=== PATIENT | female | born 1970 | race Hispanic/Latino ===

== ENCOUNTER → 2023-05-01 10:36 | Outpatient (CLI) | payer OTHER, MEDICAID, SELFPAY ==
--- NOTE | 2023-05-01 10:38 | DI.RAD.S_ITS ---
PROCEDURE: XR CERVICAL SPINE 2V OR 3V INDICATIONS: neck pain, numbness tingling in right arm TECHNIQUE: 3 view(s) of the cervical spine were acquired. COMPARISON: None. FINDINGS: Bones: No fractures or dislocations to the C7 level. The lateral masses of C1 appear intact on the odontoid view. No suspicious bony lesions. Straightening of the normal cervical lordosis, a finding which can be seen in the setting of muscle strain and/or spasm. Mild multilevel degenerative changes with disc height loss, endplate spurring, and facet arthropathy. Soft tissues: No prevertebral soft tissue swelling. IMPRESSION: Degenerative changes of the cervical spine. Dictated by: Jude Lawton M.D. on 05/01/2023 at 20:21 Approved by: Jude Lawton M.D. on 05/01/2023 at 20:22
[2023-05-01 12:33] LABS: Hematocrit 44.1 % (36-46); Hemoglobin 15.3 g/dL (12.0-16.0); Mean Corpuscular HGB Conc 34.7 % (30-36); Mean Corpuscular Hemoglobin 28.9 PG (26-34); Mean Corpuscular Volume 83.2 fL (80-100); Platelet Count 210 X10^3/uL (150-400); Red Blood Cell Count 5.31 X10^6/uL (4.0-5.2); Red Cell Distribution Width 12.7 % (11.6-14.8); White Blood Cell Count 4.1 X10^3/uL (4.5-11.0)
[2023-05-01 12:40] LABS: Add Manual Diff / Slide Review YES
[2023-05-01 13:07] LABS: Alanine Aminotransferase 25 IU/L (<35); Albumin 4.5 g/dL (3.5-5.0); Albumin Globulin Ratio 1.3 (1.0-2.8); Alkaline Phosphatase 107 U/L (38-126); Aspartate Aminotransferase 28 IU/L (14-36); BUN Creatinine Ratio 23.6 (6-22); Bilirubin Total 0.8 mg/dL (0.2-1.3); Blood Urea Nitrogen 17 mg/dL (7-17); Calcium 9.8 mg/dL (8.4-10.2); Carbon Dioxide 31 mmol/L (22-32); Chloride 100 mmol/L (98-107); Cholesterol 207 mg/dL (140-199); Estimated Glomerular Filt Rate > 60 mL/min (>60); Globulin 3.5 g/dL (1.7-4.1); Glucose 91 mg/dL (70-100); HDL Cholesterol 48 mg/dL (40-60); HEMOLYSIS < 15 (0-50); LDL Cholesterol Calculated 121 mg/dL (<100); Potassium 3.5 mmol/L (3.4-5.1); Sodium 140 mmol/L (137-145); Triglycerides 190 mg/dL (35-150)
[2023-05-01 13:16] LABS: Neutrophils Absolute Manual 1435 /uL (3000-5900); Total Cells Counted 100
[2023-05-01 13:17] LABS: RBC Morphology Normal Morphology
[2023-05-01 13:36] LABS: TSH w/ Reflex to FT4 2.07 uIU/mL (0.47-4.68)
== END ==
PROVIDERS: PCP Student in an Organized Health Care Education/Training Program; Referring Provider Student in an Organized Health Care Education/Training Program; Visit Provider Student in an Organized Health Care Education/Training Program
DX: Z00.00 Encounter for general adult medical examination without abnormal findings (principal); M54.2 Cervicalgia; R53.83 Other fatigue
CPT/HCPCS: 36415; 72040; 80053; 80061; 84443; 85007; 85025

== ENCOUNTER → 2023-07-29 09:00 | Outpatient (CLI) | payer OTHER, MEDICAID, SELFPAY ==
[2023-07-29 11:22] LABS: Alanine Aminotransferase 31 IU/L (<35); Albumin 4.2 g/dL (3.5-5.0); Albumin Globulin Ratio 1.2 (1.0-2.8); Alkaline Phosphatase 82 U/L (38-126); Aspartate Aminotransferase 27 IU/L (14-36); BUN Creatinine Ratio 23.5 (6-22); Bilirubin Total 0.7 mg/dL (0.2-1.3); Blood Urea Nitrogen 16 mg/dL (7-17); Calcium 9.4 mg/dL (8.4-10.2); Carbon Dioxide 31 mmol/L (22-32); Chloride 100 mmol/L (98-107); Estimated Glomerular Filt Rate > 60 mL/min (>60); Globulin 3.5 g/dL (1.7-4.1); Glucose 97 mg/dL (70-100); HEMOLYSIS < 15 (0-50); Potassium 3.3 mmol/L (3.4-5.1); Sodium 140 mmol/L (137-145); Total Protein 7.7 g/dL (6.3-8.2); Uric Acid 8.9 mg/dL (2.5-6.2)
[2023-07-30 12:01] LABS: Fecal Immunochemical Test Negative (Negative)
== END ==
PROVIDERS: PCP Student in an Organized Health Care Education/Training Program; Referring Provider Student in an Organized Health Care Education/Training Program; Visit Provider Student in an Organized Health Care Education/Training Program
DX: Z12.11 Encounter for screening for malignant neoplasm of colon (principal); I10 Essential (primary) hypertension; M10.9 Gout, unspecified
CPT/HCPCS: 36415; 80053; 82274; 84550

== ENCOUNTER → 2024-03-06 10:11 | Outpatient (CLI) | payer OTHER, MEDICAID, SELFPAY | PROVIDERS: PCP Student in an Organized Health Care Education/Training Program; Referring Provider Student in an Organized Health Care Education/Training Program; Visit Provider Student in an Organized Health Care Education/Training Program | DX: R05.3 Chronic cough (principal); R94.2 Abnormal results of pulmonary function studies | CPT/HCPCS: 94060; 94726; 94729 ==

== ENCOUNTER 2024-07-03 15:39 | Emergency (ER) | payer OTHER, SELFPAY ==
[2024-07-03 15:50] VITALS: BP 136/86; PULSE 98; RESP 16; TEMP 36.6; O2SAT 96; BMI 29.2
--- NOTE | 2024-07-03 18:05 | ED.EAR ---
HPI - Ear Problem <Todd Teixeira PA-C - Last Filed: 07/06/24 10:52> General Chief complaint: Ear Stated complaint: ear px, hearing loss, fever Time Seen by Provider: 07/03/24 17:09 Source: patient Mode of arrival: Family Vehicle History of Present Illness HPI Narrative: This is a 54 y/o female presenting to the emergency department complaining of bilat ear pain for the last two weeks. Denies any fevers, N/V/D, or any other concerning signs or symptoms. Reports some discharge from the R ear. Related Data Previous Rx's Medication Instructions Recorded allopurinol 100 mg tablet 100 mg PO DAILY #90 tabs 08/02/23 amlodipine 5 mg tablet 5 mg PO DAILY #90 tabs 08/02/23 famotidine 20 mg tablet (Pepcid) 20 mg PO DAILY #90 tabs 08/02/23 losartan 100 1 tab PO DAILY #90 tabs 08/02/23 mg-hydrochlorothiazide 25 mg tablet omeprazole 20 mg capsule,delayed 20 mg PO DAILY #30 caps 12/26/23 release beclomethasone dipropionate 40 2 inh inhalation BID #10.6 grams 01/02/24 mcg/actuation HFA breath activated aerosol (Qvar RediHaler) amoxicillin 875 mg-potassium 1 tab PO BID #14 tabs 07/03/24 clavulanate 125 mg tablet Allergies Allergy/AdvReac Type Severity Reaction Status Date / Time No Known Drug Allergies Allergy Verified 12/26/23 13:30 Review of Systems <Todd Teixeira PA-C - Last Filed: 07/06/24 10:52> Review of Systems Narrative: GENERAL: Denies chills, fatigue, malaise, fever, sweats. HEENT: Reports ear pain Denies sinus pain, , sore throat, difficulty swallowing, dizziness. RESPIRATORY: Denies dyspnea, cough, wheezing, hemoptysis, sputum. CARDIOVASCULAR: Denies chest pain, palpitations, orthopnea, edema, GASTROINTESTINAL: Denies nausea, vomiting, abdominal pain, diarrhea, constipation, melena. : Denies dysuria, frequency, incontinence, hematuria, urinary retention. MUSCULOSKELETAL: denies weakness, joint pain, or bony pain SKIN: Denies rash, skin lesions, or other NEUROLOGIC: Denies weakness, headache, numbness, change in speech, confusion, seizures, incoordination. PSYCHIATRIC: No concerning psychosocial issues. 12 point review of systems is negative except for those stated above Patient History <STEVE Abel Last Filed: 07/06/24 10:52> Medical History (Updated 07/18/24 @ 00:00 by ) Chronic bronchitis (~2021) Chronic cough (~2020) Shoulder pain (~2021) Foot pain (~2019) Hearing loss (~1984) Kidney stones (~2020) Gout (~2019) Hypertension (~2017) Surgical History (Updated 05/17/23 @ 21:10 by Robyn Sutton) Anesthesia History of gallstones (~08/2011) Social History Smoking Status: Never smoker Smoking Status: Never smoker Exam <STEVE Abel Last Filed: 07/06/24 10:52> Narrative Exam Narrative: GENERAL: Well-developed patient, in mild distress. HEAD: Atraumatic. Normocephalic. EYES: Pupils equal round and reactive. Extraocular motions intact. No scleral icterus. No injection or drainage. ENT: Nose without bleeding, purulent drainage. Throat without erythema, tonsillar hypertrophy or exudate. Airway patent. Bilat TM erythemas, R EAC w/ some purulent drainage as well NECK: Trachea midline. Non tender EXTREMITIES: No edema or joint tenderness. NEURO: AOx3. SKIN: No rash or erythema of visible areas Initial Vital Signs Initial Vital Signs: Vital Signs Temperature 97.8 F 07/03/24 15:50 Pulse Rate 98 H 07/03/24 15:50 Respiratory Rate 16 07/03/24 15:50 Blood Pressure 136/86 07/03/24 15:50 Pulse Oximetry 96 07/03/24 15:50 Oxygen Delivery Method Room Air 07/03/24 15:50 <Janki Aguayo DO - Last Filed: 07/19/24 23:50> Initial Vital Signs Initial Vital Signs: Vital Signs Temperature 97.8 F 07/03/24 15:50 Pulse Rate 98 H 07/03/24 15:50 Respiratory Rate 16 07/03/24 15:50 Blood Pressure 136/86 07/03/24 15:50 Pulse Oximetry 96 07/03/24 15:50 Oxygen Delivery Method Room Air 07/03/24 15:50 Course <STEVE Abel Last Filed: 07/06/24 10:52> Vital Signs Vital signs: Vital Signs - 8 hr 07/03/24 15:50 Temperature 97.8 F Pulse Rate 98 H Respiratory Rate 16 Blood Pressure 136/86 Pulse Oximetry 96 Oxygen Delivery Method Room Air <Janki Xavier Aguayo DO - Last Filed: 07/19/24 23:50> Vital Signs Vital signs: Vital Signs - 8 hr 07/03/24 15:50 Temperature 97.8 F Pulse Rate 98 H Respiratory Rate 16 Blood Pressure 136/86 Pulse Oximetry 96 Oxygen Delivery Method Room Air Medical Decision Making <Todd Teixeira PA-C - Last Filed: 07/06/24 10:52> MDM Narrative Medical decision making narrative: ED course: 54 y/o F presenting to clinic w/ concerns for OE and AOM on physical exam. No evidence of mastoiditis. Will treat w/ oral and topical abx CC: Ear pain Complicating co-morbidities: None Data collected from: Previous notes Medical records reviewed: Not been here for similar symptoms in the past Differential considered, but not limited to: AOM, AOE, mastoiditis, perforated TM Exam documented above, pertinent findings include: Erythema to TM as well as purulent drainage Lab Test results independently reviewed as above. Pertinent findings: None obtained Imaging studies independently reviewed: None obtained Scores Used: None MIPS Elements: None Consultations: None Treatments: None Re-evaluations: None Discussion: Discussed plan with the patient was comfortable with the plan Diagnosis: Otitis media and otitis externa Disposition: see below, along with detailed discharge instructions that have been reviewed with patient as well as indications for ED re-evaluation and additional outpatient follow up Discharge Plan Departure Patient Disposition: Home Clinical Impression: Ear infection Instructions: DI for Middle Ear Infection-Adult Activity Restrictions/Additional Instructions: Thank you for coming to the [facility] Emergency Department today. please use the antibiotics as prescribed. Please return to the emergency department if you develop any Fevers, severe pain, or any other concerning signs or symptoms. I hope you feel better soon. Please follow up with your primary care provider within a week if your symptoms continue. If you do not have a primary care provider please contact the [facility] Resource line at [phone]. They will ask some questions about your medical history and help you get set up with a provider in the community. Prescriptions: New amoxicillin-pot clavulanate 875-125 mg tablet 1 tab PO BID Qty: 14 0RF No Action allopurinol 100 mg tablet 100 mg PO DAILY Qty: 90 3RF amlodipine 5 mg tablet 5 mg PO DAILY Qty: 90 3RF famotidine [Pepcid] 20 mg tablet 20 mg PO DAILY Qty: 90 3RF losartan-hydrochlorothiazide 100-25 mg tablet 1 tab PO DAILY Qty: 90 3RF omeprazole 20 mg capsule,delayed release(DR/EC) 20 mg PO DAILY Qty: 30 3RF Qvar RediHaler 40 mcg/actuation HFA aerosol breath activated 2 inh inhalation BID Qty: 10.6 0RF Referrals: Choco Kumar MD [Physician] - Kristen Matthew MD [Primary Care Provider] - Stand Alone Forms: Patient Portal/API/Survey ED Sign-out <Janki Aguayo DO - Last Filed: 07/19/24 23:50> Cosign ED Attending Cosnoelature Attestation: I was immediately available in the department for consultation.
[2024-07-03 18:22] VITALS: BP 130/82; PULSE 94; RESP 16; O2SAT 98
== END 2024-07-03 18:23 | disposition home or self-care (01) ==
PROVIDERS: Emergency Provider Physician Assistant Medical; PCP Student in an Organized Health Care Education/Training Program
DX: H66.93 Otitis media, unspecified, bilateral (principal); H60.93 Unspecified otitis externa, bilateral
CPT/HCPCS: 99281

== ENCOUNTER → 2024-09-07 09:25 | Outpatient (CLI) | payer OTHER, SELFPAY ==
[2024-09-07 10:01] LABS: Add Manual Diff / Slide Review NO; Basophils Absolute Auto 0 /uL (0-100); Basophils Percent Auto 1.1 % (0-2); Eosinophils Absolute Auto 100 /uL (0-450); Eosinophils Percent Auto 3.4 % (2-4); Hematocrit 40.6 % (36-46); Hemoglobin 14.3 g/dL (12.0-16.0); Lymphocytes Absolute Auto 2200 /uL (1100-4500); Lymphocytes Percent Auto 51.5 % (25-40); Mean Corpuscular HGB Conc 35.2 % (30-36); Mean Corpuscular Hemoglobin 30.2 PG (26-34); Mean Corpuscular Volume 85.6 fL (80-100); Monocytes Absolute Auto 300 /uL (0-900); Monocytes Percent Auto 6.6 % (3-14); Neutrophils Absolute Auto 1600 /uL (1500-7000); Neutrophils Percent Auto 37.4 % (50-75); Platelet Count 209 X10^3/uL (150-400); Red Blood Cell Count 4.74 X10^6/uL (4.0-5.2); White Blood Cell Count 4.3 X10^3/uL (4.5-11.0)
[2024-09-07 10:28] LABS: Creatinine Urine Random 32.25 mg/dL
[2024-09-07 10:33] LABS: Microalbumin Urine Random < 0.6 mg/dL (0-1.6)
[2024-09-07 10:43] LABS: BUN Creatinine Ratio 25.7 (6-22); Blood Urea Nitrogen 18 mg/dL (7-17); Cholesterol 221 mg/dL (140-199); Estimated Glomerular Filt Rate > 60 mL/min (>60); HDL Cholesterol 55 mg/dL (40-60); LDL Cholesterol Calculated 142 mg/dL (<100); Triglycerides 122 mg/dL (35-150)
== END ==
PROVIDERS: PCP Student in an Organized Health Care Education/Training Program; Referring Provider Student in an Organized Health Care Education/Training Program; Visit Provider Student in an Organized Health Care Education/Training Program
DX: I10 Essential (primary) hypertension (principal)
CPT/HCPCS: 36415; 80061; 82043; 82565; 82570; 84520; 85025

== ENCOUNTER 2024-10-05 09:12 | Day surgery (SDC) | payer OTHER, SELFPAY ==
[2024-10-05] MEDS: LACTATED RINGERS 1,000 ML 150 ML IV (10:12)
[2024-10-05 10:27] VITALS: BP 133/91; PULSE 97; RESP 20; TEMP 36.2; O2SAT 97
--- NOTE | 2024-10-05 10:28 | PM.HP.IH.1 ---
History of Present Illness History of Present Illness Date Patient Seen: 10/05/24 Chief complaint: Colonoscopy Narrative: 1st screening colonoscopy [facility] Medical History (Updated 09/07/24 @ 10:01 by Kristen Matthew MD) Chronic bronchitis (~2021) Chronic cough (~2020) Shoulder pain (~2021) Foot pain (~2019) Hearing loss (~1984) Kidney stones (~2020) Gout (~2019) Hypertension (~2017) Surgical History (Updated 05/17/23 @ 21:10 by Robyn Sutton) Anesthesia History of gallstones (~08/2011) Social History Smoking Status: Never smoker Meds Home Medications and Allergies Home Medications Medication Instructions Recorded Confirmed Type famotidine 20 mg tablet (Pepcid) 20 mg PO DAILY #90 tabs 08/02/23 09/07/24 Rx beclomethasone dipropionate 40 2 inh inhalation BID #10.6 grams 01/02/24 09/07/24 Rx mcg/actuation HFA breath activated aerosol (Qvar RediHaler) allopurinol 100 mg tablet 100 mg PO DAILY #90 tabs 08/24/24 09/07/24 Rx amlodipine 5 mg tablet 5 mg PO DAILY #90 tabs 08/24/24 09/07/24 Rx losartan 100 1 tab PO DAILY #90 tabs 08/24/24 09/07/24 Rx mg-hydrochlorothiazide 25 mg tablet amoxicillin 875 mg-potassium 1 tab PO BID #14 tabs 09/07/24 09/07/24 Rx clavulanate 125 mg tablet erythromycin 5 mg/gram (0.5 %) eye 0.5 inch EYE-RIGHT TID 5 days #3.5 09/07/24 09/07/24 Rx ointment grams sodium,potassium,mag sulfates 17.5 See Rx Instructions PO .COMPLEX 09/15/24 Rx gram-3.13 gram-1.6 gram oral soln #354 mL (Suprep Bowel Prep Kit) Allergies Allergy/AdvReac Type Severity Reaction Status Date / Time No Known Drug Allergies Allergy Verified 10/05/24 09:58 Exam Narrative Exam Narrative: Oropharynx free of lesions Chest clear to auscultation percussion Cardiac exam reveals no S3 or murmur Assessment & Plan Assessment & Plan narrative: For screening colonoscopy. Risks, benefits, alternatives have been explained. Time-Based Coding :: [TOTAL MINUTES] spent with patient and on the chart (including review of chart, obtaining history, exam, reviewing outside data, placing orders, documenting exam and treatment plan, and counseling patient) on [DATE]. PROFEE Maintenance Coordinator Document charge(s): No
--- NOTE | 2024-10-05 10:29 | P.OP.COLON_ITS ---
Operative Date/Time/Diagnoses Date of procedure: 10/05/24 Pre-op diagnosis: See indication and findings Post-op diagnosis: same Procedure & Clinicians Study performed: Colonoscopy Same procedure as scheduled: Yes Indications: For screening colonoscopy Surgeon: Renae Harkins Procedure Notes Procedure in detail: After informed consent was obtained the patient was placed in left lateral decubitus position. The video colonoscope was introduced the rectum slowly adva nced cecum. Preparation was good. On slow withdrawal mucosa was carefully examined. Scope was removed. The patient tolerated procedure well. Blood loss none Complications none Sedation mac Findings 1. Normal colonoscopy to cecum Patient should have follow-up colonoscopy in 10 years
[2024-10-05 11:24] VITALS: BP 105/58; PULSE 81; RESP 14; TEMP 36.4; O2SAT 97
[2024-10-05 11:29] VITALS: BP 117/70; PULSE 81; RESP 17; O2SAT 96
[2024-10-05 11:34] VITALS: BP 121/76; PULSE 85; RESP 16; O2SAT 96
== END 2024-10-05 12:20 | disposition home or self-care (01) ==
PROVIDERS: PCP Student in an Organized Health Care Education/Training Program; Referring Provider Internal Medicine Gastroenterology; Visit Provider Internal Medicine Gastroenterology
PROC: 0DJD8ZZ Inspection of Lower Intestinal Tract, Via Natural or Artificial Opening Endoscopic (ICD-10-PCS; CPT 45378; principal; 2024-10-05 10:30)
DX: Z12.11 Encounter for screening for malignant neoplasm of colon (principal)
CPT/HCPCS: 45378; J2704